=== PATIENT | male | born 1965 | race Caucasian/White ===

== ENCOUNTER 2024-06-13 08:56 | Oncology outpatient (recurring) (ONCR) | payer OTHER, SELFPAY ==
[2024-06-13 09:40] VITALS: BP 117/77; PULSE 67; RESP 16; TEMP 36.7; O2SAT 97
[2024-06-13] MEDS: [UNRECOGNIZED DRUG - OTHER] IV (10:15)
[2024-06-13] MEDS: SODIUM CHLORIDE 0.9% IV (10:15)
[2024-06-13 11:17] VITALS: BP 129/85; PULSE 57; RESP 16; TEMP 36.7; O2SAT 97
== END 2024-06-18 23:59 | disposition home or self-care (01) ==
PROVIDERS: Visit Provider Psychiatry & Neurology Neurology
DX: Z53.9 Procedure and treatment not carried out, unspecified reason (principal); G30.9 Alzheimer's disease, unspecified; F02.80 Dementia in other diseases classified elsewhere, unspecified severity, without behavioral disturbance, psychotic disturbance, mood disturbance, and anxiety; Z79.899 Other long term (current) drug therapy
CPT/HCPCS: 96413; A4222; J0174; J7050